=== PATIENT | male | born 1950 | race Caucasian/White ===

== ENCOUNTER 2017-03-12 17:12 | Emergency (ER) | payer OTHER ==
[2017-03-12 17:47] LABS: BILIRUBIN NEGATIVE (NEGATIVE); BLOOD TRACE-INTACT Ery/uL (NEGATIVE); CLARITY CLEAR (CLEAR); COLOR YELLOW (YELLOW); GLUCOSE (U) NORMAL (NORMAL); KETONE (U) NEGATIVE (NEGATIVE); LEUKOCYTES NEGATIVE Leu/uL (NEGATIVE); NITRITE NEGATIVE (NEGATIVE); PROTEIN 2+ mg/dL (NEGATIVE); UROBILINOGEN 0.2 mg/dL (0.2-1.0); pH 5.5 (5.0-9.0)
[2017-03-12 17:53] LABS: BACTERIA 2+; URINARY WBC RARE
[2017-03-12 17:54] LABS: MUCOUS TRACE
[2017-03-12 18:02] LABS: BASOPHIL 0.3 % (0-2); EOSINOPHIL 0.8 % (0-7); HGB 13.6 g/dl (13.2-18.0); LYMPHOCYTE 19.2 % (15-48); MCH 27.4 pg (25.0-31.0); MCV 80.6 fL (78.0-100.0); MONOCYTE 15.3 % (0-12); MPV 11.6 fL (6.0-9.5); NEUTROPHIL 64.4 % (41-80); PLT 177 K/uL (150-400); RBC 4.96 M/uL (4.70-6.00); RDW 17.4 % (11.5-14.0); WBC 9.7 K/uL (4.0-10.5)
[2017-03-12 18:23] LABS: ALBUMIN 3.1 g/dL (3.4-4.8); BILIRUBIN - TOTAL 0.3 mg/dL (0.1-1.0); GLOBULIN (CALCULATION) 3.5 g/dL (2.2-4.2); POTASSIUM 3.2 mmol/L (3.5-5.1); TOTAL PROTEIN 6.6 g/dL (6.4-8.3)
== END 2017-03-12 22:18 | disposition home or self-care (01) ==
LOC: FER 17:12
PROVIDERS: Internal Medicine
DX: R19.7 Diarrhea, unspecified (principal); I25.2 Old myocardial infarction; E11.9 Type 2 diabetes mellitus without complications; I10 Essential (primary) hypertension; F17.210 Nicotine dependence, cigarettes, uncomplicated
CPT/HCPCS: 36415; 80053; 81001; 83690; 85025; 87088; J2405

== ENCOUNTER 2020-11-24 15:08 | Day surgery (SDCO) | payer OTHER ==
[~2020-11-24] VITALS: Ht 172.7 cm; Wt 85.8 kg
[~2020-11-24 15:08] MED LIST: DUONEB 2.5-0.5M1 AMP INH; KEFLEX250 MG PO; PREDNISONE 20MG20 MG PO; VIBRAMYCIN100 MG PO
[2020-11-24 16:02] LABS: BASOPHIL 0.5 % (0-2); EOSINOPHIL 0.7 % (0-7); HCT 36.4 % (42.0-52.0); HGB 11.8 g/dl (13.2-18.0); LYMPHOCYTE 11.1 % (15-48); MCH 26.1 pg (25.0-31.0); MCHC 32.4 g/dL (32.0-36.0); MCV 80.5 fL (78.0-100.0); MONOCYTE 9.1 % (0-12); NEUTROPHIL 77.8 % (41-80); NRBC 0; PLT 209 K/uL (150-400); RBC 4.52 M/uL (4.70-6.00); RDW 17.6 % (11.5-14.0); WBC 11.1 K/uL (4.0-10.5)
[2020-11-24 16:12] LABS: INR 1.07 (0.9-1.2); PROTHROMBIN TIME 13.2 SECONDS (11.4-13.6); PTT 34.5 SECONDS (22.2-34.7)
[2020-11-24 16:23] LABS: IRON % SATURATION 10.7 %SAT (20-50)
[2020-11-24 16:31] LABS: LACTIC ACID 2.3 mmol/L (0.4-1.9)
[2020-11-24 16:37] LABS: BILIRUBIN NEGATIVE (NEGATIVE); BLOOD NEGATIVE Ery/uL (NEGATIVE); CLARITY CLEAR (CLEAR); COLOR YELLOW (YELLOW); GLUCOSE (U) 3+ mg/dL (NORMAL); LEUKOCYTES NEGATIVE Leu/uL (NEGATIVE); NITRITE NEGATIVE (NEGATIVE); PROTEIN 2+ mg/dL (NEGATIVE); SPECIFIC GRAVITY 1.015 (1.001-1.030); UROBILINOGEN 0.2 mg/dL (0.2-1.0)
[2020-11-24 16:37] LABS: ALBUMIN 3.3 g/dL (3.4-5.0); BILIRUBIN - TOTAL 0.3 mg/dL (0.2-1.0); BUN/CREAT RATIO (CALC) 16.7 RATIO; CREATININE 1.86 mg/dL (0.67-1.17); GLOBULIN (CALCULATION) 4.7 g/dL; MAGNESIUM 1.7 mg/dL (1.8-2.4); POTASSIUM 4.6 mmol/L (3.5-5.1)
[2020-11-24 16:41] LABS: BACTERIA TRACE; SQUAMOUS EPITHELIAL CELLS RARE; URINARY WBC RARE
[2020-11-24 20:32] LABS: RBC (FLUID) 1000 RBC/uL
[2020-11-24 20:33] LABS: CLARITY (FLUID) HAZY; COLOR (FLUID) YELLOW; WBC (FLUID) 14617 WBC/uL
[2020-11-24] MEDS ORDERED: HYDRALAZINE 50M50 MG PO (23:03)
[2020-11-24] MEDS ORDERED: ISOSORBIDE MONO60 M1 PO (23:04)
[2020-11-24] MEDS ORDERED: TAMSULOSIN HCL0.4 MG PO (23:06)
[2020-11-24] MEDS ORDERED: OMEPRAZOLE40 MG PO (23:07)
[2020-11-24] MEDS ORDERED: LASIX40 MG PO (23:09)
[2020-11-24] MEDS ORDERED: TRADJENTA5 MG PO (23:09)
[2020-11-24] MEDS ORDERED: ROSUVASTATIN CA40 MG PO (23:10)
[2020-11-24] MEDS ORDERED: GABAPENTIN600 MG PO (23:11)
[2020-11-24] MEDS ORDERED: ALLOPURINOL 10100 MG PO (23:12)
[2020-11-25 04:20] LABS: BASOPHIL 0.5 % (0-2); EOSINOPHIL 1.3 % (0-7); HCT 36.4 % (42.0-52.0); MCH 26.8 pg (25.0-31.0); MCV 81.4 fL (78.0-100.0); MPV 10.9 fL (6.0-9.5); NEUTROPHIL 77.5 % (41-80); NRBC 0; PLT 212 K/uL (150-400); RBC 4.47 M/uL (4.70-6.00); RDW 17.9 % (11.5-14.0); WBC 13.3 K/uL (4.0-10.5)
[2020-11-25 04:43] LABS: CREATININE 1.5 mg/dL (0.67-1.17); POTASSIUM 4.2 mmol/L (3.5-5.1)
--- NOTE | 2020-11-25 14:43 | NUR ---
MET WITH DR. BUTLER. HE ADVISED ME THAT [facility] HAS CLEARED PATIENT. DR. BUTLER IS NOT RECOMMENDING HH AT THIS TIME. WHEN PT. BLOOD SUGAR IS BELOW 3OO PT. CAN GO HOME. MET WITH PT. AND . THEY ARE NOT INTERESTED IN HH. PT. IS AWARE OF NURTRION AND HOW TO EAT APPROPRIATELY FOR A DIABETIC. HE IS RETIRED AND INDEPENDENT. PT. RESIDES WITH SPOUSE. HE DOES NOT REQUIRE ANY DEM.
[2020-11-26] MEDS ORDERED: COLCHICINE0.6 MG PO ×2 (10:52→11:05)
[2020-11-26] MEDS ORDERED: LANTUS **100 UNITS/ SC ×2 (10:52→11:05)
== END 2020-11-26 13:05 | disposition home or self-care (01) ==
LOC: FER 15:08 → FMS 18:57
PROVIDERS: Emergency Medicine; Nurse Practitioner; ADMIT Internal Medicine
DX: E11.65 Type 2 diabetes mellitus with hyperglycemia (principal); M17.11 Unilateral primary osteoarthritis, right knee; R00.0 Tachycardia, unspecified; I25.10 Atherosclerotic heart disease of native coronary artery without angina pectoris; I25.2 Old myocardial infarction; I13.0 Hypertensive heart and chronic kidney disease with heart failure and stage 1 through stage 4 chronic kidney disease, or unspecified chronic kidney disease; E11.22 Type 2 diabetes mellitus with diabetic chronic kidney disease; N18.4 Chronic kidney disease, stage 4 (severe); Z20.822 Contact with and (suspected) exposure to COVID-19; I50.9 Heart failure, unspecified; E11.42 Type 2 diabetes mellitus with diabetic polyneuropathy; J44.9 Chronic obstructive pulmonary disease, unspecified; K21.9 Gastro-esophageal reflux disease without esophagitis; M10.9 Gout, unspecified; E78.5 Hyperlipidemia, unspecified; F17.210 Nicotine dependence, cigarettes, uncomplicated; E66.3 Overweight; Z68.28 Body mass index [BMI] 28.0-28.9, adult; Z66 Do not resuscitate; Z91.11 Patient's noncompliance with dietary regimen; Z91.14 Patient's other noncompliance with medication regimen; Z86.73 Personal history of transient ischemic attack (TIA), and cerebral infarction without residual deficits; Z79.84 Long term (current) use of oral hypoglycemic drugs; Z79.899 Other long term (current) drug therapy; Z88.0 Allergy status to penicillin; Z88.8 Allergy status to other drugs, medicaments and biological substances; Z95.1 Presence of aortocoronary bypass graft; Z95.5 Presence of coronary angioplasty implant and graft
CPT/HCPCS: 36415; 36600; 71045; 80048; 80053; 81001; 82803; 83036; 83540; 83550; 83605; 83735; 83880; 84145; 84443; 84484; 84550; 85025; 85610; 85730; 87070; 87205; 89051; 89060; 93005; 94640; 96374; G0378; J1644; J3370; J7030; J7050; U0002

== ENCOUNTER 2022-01-14 13:39 | Inpatient (IN) | payer OTHER ==
[~2022-01-14] VITALS: Ht 172.7 cm; Wt 86.3 kg
[~2022-01-14 13:39] MED LIST changes: +ALLOPURINOL 10100 MG PO; +COLCHICINE0.6 MG PO; +FEROSUL325 MG PO; +GABAPENTIN600 MG PO; +GLUCOTROL XL5 MG PO; +HYDRALAZINE 10M10 MG PO; +HYDRALAZINE 50M50 MG PO; +ISOSORBIDE MONO60 M1 PO; +LANTUS **100 UNITS/ SC; +LASIX40 MG PO; +LOPRESSOR25 MG PO; +NITROGLYCERIN0.4 MG PO; +OMEPRAZOLE40 MG PO; +ROSUVASTATIN CA40 MG PO; +TAMSULOSIN HCL0.4 MG PO; +TRADJENTA5 MG PO; +VICODIN 10/3251 EACH PO; +VIT C-ROSE HIP500 MG PO
[2022-01-14 14:14] LABS: BASOPHIL 0.5 % (0-2); EOSINOPHIL 1.2 % (0-7); HCT 39.1 % (42.0-52.0); HGB 12.5 g/dl (13.2-18.0); LYMPHOCYTE 13.6 % (15-48); MCH 28.6 pg (25.0-31.0); MCV 89.5 fL (78.0-100.0); MONOCYTE 6.7 % (0-12); MPV 11.1 fL (6.0-9.5); NEUTROPHIL 77.5 % (41-80); NRBC 0; PLT 194 K/uL (150-400); RBC 4.37 M/uL (4.70-6.00); RDW 17.1 % (11.5-14.0); WBC 8.1 K/uL (4.0-10.5)
[2022-01-14 14:38] LABS: IRON % SATURATION 17.3 %SAT (20-50)
[2022-01-14 14:48] LABS: CORONAVIRUS 2019 SARS-COV-2 NEGATIVE (NEGATIVE); INFLUENZA A NAA NEGATIVE (NEGATIVE)
[2022-01-14 14:52] LABS: LACTIC ACID 1.2 mmol/L (0.4-1.9)
[2022-01-14 14:54] LABS: ALBUMIN 3.3 g/dL (3.4-5.0); BILIRUBIN - TOTAL 0.5 mg/dL (0.2-1.0); BUN/CREAT RATIO (CALC) 11.4 RATIO; C-REACTIVE PROTEIN 1.2 mg/dL (<=0.90); CREATININE 1.75 mg/dL (0.67-1.17); MAGNESIUM 1.8 mg/dL (1.8-2.4); POTASSIUM 3.9 mmol/L (3.5-5.1); TOTAL PROTEIN 7.3 g/dL (6.4-8.2)
[2022-01-14 16:19] LABS: BILIRUBIN NEGATIVE (NEGATIVE); BLOOD 1+ Ery/uL (NEGATIVE); CLARITY CLEAR (CLEAR); COLOR YELLOW (YELLOW); GLUCOSE (U) NORMAL (NORMAL); LEUKOCYTES NEGATIVE Leu/uL (NEGATIVE); NITRITE NEGATIVE (NEGATIVE); PROTEIN 2+ mg/dL (NEGATIVE); SPECIFIC GRAVITY 1.015 (1.001-1.030); UROBILINOGEN 0.2 mg/dL (0.2-1.0)
[2022-01-14 16:36] LABS: BACTERIA TRACE; SQUAMOUS EPITHELIAL CELLS RARE; URINARY RBC RARE; URINARY WBC RARE
[2022-01-14 19:50] LABS: MAGNESIUM 1.8 mg/dL (1.8-2.4)
[2022-01-14] MEDS ORDERED: ALLOPURINOL100 MG PO (23:42)
[2022-01-14] MEDS ORDERED: TRADJENTA5 MG PO (23:43)
[2022-01-14] MEDS ORDERED: FEOSOL325 MG PO (23:43)
[2022-01-14] MEDS ORDERED: INDOCIN25 MG PO (23:44)
[2022-01-14] MEDS ORDERED: ISOSORBIDE MONO60 MG PO (23:45)
[2022-01-14] MEDS ORDERED: LASIX40 MG PO (23:45)
[2022-01-14] MEDS ORDERED: LOPRESSOR25 MG PO (23:46)
[2022-01-14] MEDS ORDERED: PRILOSEC20 MG PO (23:46)
[2022-01-14] MEDS ORDERED: FLOMAX0.4 MG PO (23:47)
[2022-01-14] MEDS ORDERED: GABAPENTIN600 MG PO (23:47)
[2022-01-15 06:31] LABS: BASOPHIL 0.7 % (0-2); EOSINOPHIL 1.7 % (0-7); HCT 38.1 % (42.0-52.0); HGB 12.2 g/dl (13.2-18.0); MCH 28.8 pg (25.0-31.0); MCV 89.9 fL (78.0-100.0); MONOCYTE 8.3 % (0-12); MPV 11.8 fL (6.0-9.5); NRBC 0; PLT 190 K/uL (150-400); RBC 4.24 M/uL (4.70-6.00); RDW 17.1 % (11.5-14.0); WBC 8.7 K/uL (4.0-10.5)
[2022-01-15 07:24] LABS: BILIRUBIN - TOTAL 0.5 mg/dL (0.2-1.0); BUN/CREAT RATIO (CALC) 11.6 RATIO; CREATININE 1.72 mg/dL (0.67-1.17); GLOBULIN (CALCULATION) 3.9 g/dL; MAGNESIUM 1.9 mg/dL (1.8-2.4); POTASSIUM 3.9 mmol/L (3.5-5.1); TOTAL PROTEIN 6.9 g/dL (6.4-8.2)
[2022-01-16 06:03] LABS: HCT 37.3 % (42.0-52.0); MCH 28.7 pg (25.0-31.0); MCHC 32.2 g/dL (32.0-36.0); MCV 89.2 fL (78.0-100.0); MPV 11.5 fL (6.0-9.5); RBC 4.18 M/uL (4.70-6.00); WBC 9.5 K/uL (4.0-10.5)
[2022-01-16 06:29] LABS: BUN/CREAT RATIO (CALC) 13.8 RATIO; CREATININE 1.74 mg/dL (0.67-1.17)
[2022-01-16] MEDS ORDERED: BUMETANIDE1 MG PO (11:02)
[2022-01-16] MEDS ORDERED: SPIRIVA RESPIMAT4 GM INH (11:02)
[2022-01-16] MEDS ORDERED: PREDNISONE 20MG20 MG PO (11:08)
--- NOTE | 2022-01-16 14:53 | NUR ---
1452 REFUSED TO WAIT FOR THE PROTABLE OXYGEN,"THEY CAN BRING IT TO MY HOME" EXPLAINED HOW TO USE THE HOME OXYGEN AND NOT TO BE SMOKING WITH THE OXYGEN ON OR EVEN IN THE SAME HOUSE THE OXYGEN. VOICED UNDERSTANDING. MELLISSA AFTER HOURS WAS NOTIFED TO BEING THE OXYGEN TO THE PATIENT HOME INSTEAD OF THE HOSPITAL. MAYRA MASSEY APRN WAS ALSO NOTIFED.
[2022-01-16] MEDS ORDERED: LOPRESSOR25 MG PO (14:58)
== END 2022-01-16 14:53 | disposition home or self-care (01) | DRG 291 ==
LOC: FER 13:39 → FMS 17:11
PROVIDERS: Emergency Medicine; Nurse Practitioner; Nurse Practitioner Family; ADMIT Internal Medicine
PROC: B24BZZZ Ultrasonography of Heart with Aorta (ICD-10-PCS; principal; 2022-01-15)
DX: I11.0 Hypertensive heart disease with heart failure (principal); I50.23 Acute on chronic systolic (congestive) heart failure; J96.21 Acute and chronic respiratory failure with hypoxia; E87.1 Hypo-osmolality and hyponatremia; J44.1 Chronic obstructive pulmonary disease with (acute) exacerbation; Z20.822 Contact with and (suspected) exposure to COVID-19; I42.8 Other cardiomyopathies; E11.9 Type 2 diabetes mellitus without complications; I34.0 Nonrheumatic mitral (valve) insufficiency; E78.5 Hyperlipidemia, unspecified; F17.210 Nicotine dependence, cigarettes, uncomplicated; I25.2 Old myocardial infarction; Z86.73 Personal history of transient ischemic attack (TIA), and cerebral infarction without residual deficits; Z95.1 Presence of aortocoronary bypass graft; Z98.890 Other specified postprocedural states; Z82.49 Family history of ischemic heart disease and other diseases of the circulatory system; Z88.0 Allergy status to penicillin; Z88.8 Allergy status to other drugs, medicaments and biological substances
CPT/HCPCS: 36415; 36600; 71275; 80048; 80053; 81001; 82553; 82803; 83036; 83540; 83550; 83605; 83735; 83880; 84145; 84484; 85025; 85379; 86140; 87040; 93005; 94010; 94640; 94762; 97161; 97166; J1650; J3475; J7512; Q9967; U0002